=== PATIENT | male | born 1970 | race Hispanic/Latino ===

== ENCOUNTER 2022-04-11 07:26 | Day surgery (SDC) | payer MEDICARE ==
[2022-04-11 08:31] LABS: Hematocrit 31.1 % (35.5-45.6); Hemoglobin 10.8 gm/dl (11.8-15.2); Mean Corpuscular HGB Conc 35 % (32-34); Mean Corpuscular Volume 103 fl (84-94); Platelet Count 197 K/mm3 (140-440); Red Blood Count 3.02 M/mm3 (3.65-5.03); Red Cell Distribution Width 16.9 % (13.2-15.2)
[2022-04-11 08:43] LABS: Calcium 8.7 mg/dL (8.4-10.2)
[2022-04-11] MEDS ORDERED: SODIUM CHLORIDE 0.9% 1000 ML 1,000 ML ONE (08:43)
[2022-04-11] MEDS ORDERED: INSULIN LISPRO 100 UNIT/ML SUB-Q NR (09:03)
[2022-04-11] MEDS ORDERED: HYDROmorphone 0.5 MG/0.5 ML INJ IV PRN (09:04)
[2022-04-11] MEDS ORDERED: ONDANSETRON 4 MG/2 ML INJ IV PRN (09:04)
--- NOTE | 2022-04-11 09:05 | Anesthesia Day of Surgery ---
Anesthesia Day of Surgery - Day of Surgery Patient Examined: Yes Patient H&P Reviewed: Yes Patient is NPO: Yes Beta Blockers: Yes
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
[2022-04-11] MEDS ORDERED: SODIUM CHLORIDE 0.9% 1000 ML 1,000 ML IV SCH (10:00)
[2022-04-11] MEDS ORDERED: MIDAZOLAM 2 MG/2 ML INJ IV NR (10:00)
[2022-04-11] MEDS ORDERED: HEPARIN 10,000 UNITS/10 ML VIAL ONE (10:43)
[2022-04-11] MEDS ORDERED: propofoL 200 MG/20 ML VIAL IV ONE (10:43)
[2022-04-11] MEDS ORDERED: LIDOCAINE MPF (2%) 20 MG/1 ML VIAL 5 ML ONE (10:43)
[2022-04-11] MEDS ORDERED: LIDOCAINE (1%) 10 MG/1 ML VIAL 20 ML MDV ONE (10:43)
[2022-04-11] MEDS ORDERED: rifAMPin 600 MG VIAL ONE (10:44)
[2022-04-11] MEDS ORDERED: SUCCINYLCHOLINE CHLORIDE 200 MG/10 ML INJ MDV ONE (11:05)
[2022-04-11] MEDS ORDERED: fentaNYL 100 MCG/2 ML INJ ONE (11:06)
[2022-04-11] MEDS ORDERED: BUPIVACAINE/PF (0.5%) 5 MG/1 ML 30 ML VIAL INFILTRATI ONE (11:38)
[2022-04-11] MEDS ORDERED: HEPARIN 10,000 UNITS/10 ML VIAL IV ONE (12:27)
[2022-04-11] MEDS ORDERED: BUPIVACAINE/PF (0.5%) 5 MG/1 ML 10 ML VIAL INFILTRATI ONE (12:28)
[2022-04-11] MEDS ORDERED: SODIUM CHLORIDE 0.9% IRR 1,500 ML BOTTLE IR ONE (12:29)
[2022-04-11] MEDS ORDERED: PHENYLEPHRINE/NS 1,000 MCG/10 ML SYRINGE (OR USE) IV ONE (12:36)
[2022-04-11] MEDS ORDERED: ONDANSETRON 4 MG/2 ML INJ ONE (12:36)
--- NOTE | 2022-04-11 12:43 | Short Stay Summary ---
Short Stay Documentation Date of service: 04/11/22 Narrative H&P: See H&P - History H&P: obtained from office - Allergies and Medications Current Medications: Allergies morphine Allergy (Verified 04/03/22 16:30) Unknown Penicillins Allergy (Verified 04/03/22 16:30) Unknown Home Medications Medication Instructions Recorded Confirmed Last Taken Type Atorvastatin (Nf) [Lipitor (Nf)] 10 mg PO QHS 04/03/22 04/03/22 04/03/22 History FLUoxetine [PROzac] 20 mg PO QDAY 04/03/22 04/03/22 04/03/22 History Ferrous Sulfate [Iron 325 MG] 325 mg PO QDAY 04/03/22 04/03/22 04/03/22 History Folic Acid/Vit B Complex and C 0.8 mg PO DAILY 04/03/22 04/03/22 04/03/22 History [Dialyvite 800 Tablet] Insulin Aspart (Nf) [NovoLOG 100 04/03/22 04/03/22 History UNITS/ML VIAL] Insulin Glargine [Lantus VIAL] 40 units SQ ACHS 04/03/22 04/03/22 04/03/22 History Olmesartan/Hydrochlorothiazide 04/03/22 04/03/22 History [Benicar HCT 40-25 mg] carvediloL [Coreg] 12.5 mg PO BID 04/03/22 04/03/22 04/03/22 History propranoloL 25 mg PO TID 04/03/22 04/03/22 04/03/22 History Active Medications Hydromorphone HCl (Hydromorphone 0.5 Mg/0.5 Ml Inj) 0.5 mg IV Q10MIN PRN PRN Reason: Pain , Severe (7-10) Stop: 04/11/22 20:00 Hydromorphone HCl (Hydromorphone 0.5 Mg/0.5 Ml Inj) 0.25 mg IV Q10MIN PRN PRN Reason: Pain, Moderate (4-6) Stop: 04/11/22 20:00 Clindamycin HCl (Cleocin 900 Mg/50 Ml) 900 mg in 50 mls @ 100 mls/hr IV PREOP NR; Protocol Stop: 04/11/22 23:59 Sodium Chloride (Nacl 0.9% 1000 Ml) 1,000 mls @ 42 mls/hr IV DIRECT NGUYỄN Last Admin: 04/11/22 08:15 Dose: 42 mls/hr Midazolam HCl (Midazolam 2 Mg/2 Ml Inj) 2 mg IV PREOP NR Stop: 04/11/22 23:59 Last Admin: 04/11/22 09:30 Dose: 2 mg - Brief post op/procedure progress note Date of procedure: 04/11/22 Pre-op diagnosis: End-Stage Renal Disease Post-op diagnosis: same Procedure: Creation of Left Brachiocephalic Arteriovenous Fistula Anesthesia: MAC (With LMA), regional Surgeon: DANITA GREEN Estimated blood loss: minimal Pathology: none Condition: stable - Disposition Condition at discharge: Good Disposition: 01 HOME / SELF CARE / HOMELESS Short Stay Discharge Plan Activity: other (No heavy lifting with left arm for 2 weeks. Use stress ball with left hand as often as possible.) Wound: open to air, keep clean and dry, other (Okay to wash the left arm incision with soap and water but do not soak in water for 2 weeks.) Follow up with: DANITA GREEN MD [Staff Physician] - 14 Days Prescriptions: HYDROcodone/APAP 5-325 [[place] 5/325] 1 each PO Q4HR PRN #30 tablet PRN Reason: Pain
--- NOTE | 2022-04-11 12:44 | Operative Report ---
Operative Report Operative Report: Date of procedure: 04/11/2022 Pre-operative diagnosis: End-Stage Renal Disease Post-operative diagnosis: End-Stage Renal Disease Procedure(s): Creation of Left Brachial Artery to Cephalic Vein Arteriovenous Fistula Surgeon: Facundo Escalona MD Manager Track: None Anesthesia: Regional/MAC EBL: Minimal Counts: Correct Complications: None Condition: Stable Findings: Successful creation of left brachiocephalic arteriovenous fistula with palpable thrill and palpable radial pulse at the completion of the case. Specimen: None Indications: The patient is a 51-year-old male with a history of end-stage renal disease who is currently on hemodialysis through a permacath. He is in need of long-term dialysis access and was found to be a suitable candidate for creation of a left arm arteriovenous fistula. He was given the risk, benefits, and alternative procedures and consented to the procedure. Description of Procedure: The patient had a regional block of the patient's left arm was performed in the preoperative area prior to being transported to the operating room. Once the regional block was performed the patient was transported to the operating room and adequate sedation was given. When the patient was sedated a timeout was performed and the patient's left arm was then prepped and draped in normal sterile fashion. A transverse incision was then made and carried down to the cephalic vein using sharp dissection. The vein was dissected out both proximally and distally and suture ligated and divided distally. I flushed the vein with heparinized saline and flow was controlled with a bulldog clamp. I then dissected out the brachial artery through this incision circumferentially both proximal and distal and controlled the artery with vessel loops. I systemically heparinized the patient with 3000 units of heparin IV and used angled DeBakey clamps to control flow through the artery. I created an arteriotomy using an 11 blade and Ibrahim scissors. I created an end to side anastomosis between the cephalic vein and brachial artery using a 6-0 Prolene in running fashion. Prior to completing the anastomosis I flashed the artery both proximally and distally and then flushed the anastomosis with heparinized saline to remove any debris. I then completed the anastomosis and removed all clamps allowing flow into the fistula which had an adequate thrill. I achieved hemostasis with a combination of Quick Clot and electrocautery. Once hemostasis had been achieved I closed the wound in 2 layers using a 3-0 Vicryl in a running fashion in the deep dermal layer and a 4-0 Monocryl in running fashion in the subcuticular layer. I then dressed the wound with Dermabond. The patient tolerated the procedure well. All sponge, needle, and instrument counts were correct. The patient was taken to the recovery area in stable condition.
[2022-04-11] MEDS: HYDROmorphone 0.5 MG/0.5 ML INJ IV PRN ×2 (13:01→13:19)
[2022-04-11 13:47] VITALS: BP 131/56
[2022-04-11] MEDS ORDERED: HYDROcodone/ACETAMINOPHEN 5-325 MG TAB PO PRN (14:00)
--- NOTE | 2022-04-11 16:10 | Post Anesthesia Evaluation ---
- Post Anesthesia Evaluation Patient Participated: Yes Airway Patent: Yes Stable Respiratory Function: Yes Nausea/Vomiting: No Temp > 96.8F: Yes Pain Manageable: Yes Adequeate Hydration: Yes Anesthesia Complications: No Block Receding Appropriately: Not Applicable Patient on Ventilator: No
== END 2022-04-11 14:55 | disposition home or self-care (01) ==
LOC: OR 07:26
PROVIDERS: ATTEND Surgery Vascular Surgery
DX: I12.0 Hypertensive chronic kidney disease with stage 5 chronic kidney disease or end stage renal disease (principal); E11.22 Type 2 diabetes mellitus with diabetic chronic kidney disease; N18.6 End stage renal disease; E11.42 Type 2 diabetes mellitus with diabetic polyneuropathy; E78.00 Pure hypercholesterolemia, unspecified; J44.9 Chronic obstructive pulmonary disease, unspecified; G47.33 Obstructive sleep apnea (adult) (pediatric); M19.90 Unspecified osteoarthritis, unspecified site; F41.9 Anxiety disorder, unspecified; Z90.49 Acquired absence of other specified parts of digestive tract; D64.9 Anemia, unspecified; Z87.891 Personal history of nicotine dependence; Z98.890 Other specified postprocedural states; Z88.0 Allergy status to penicillin; Z88.5 Allergy status to narcotic agent; Z79.899 Other long term (current) drug therapy; Z79.4 Long term (current) use of insulin
CPT/HCPCS: 36415; 36821; 80048; 82962; 85027; J0330; J1170; J1644; J2250; J2370; J2405; J2704; J3010; J3490; J7030; J7502; Q9967; J1815